=== PATIENT | female | born 1985 | race Two or more races ===

== ENCOUNTER 2016-11-01 15:35 | Observation (INO) | payer SELFPAY ==
[2016-11-01] MEDS ORDERED: PREN-96 PO (15:59)
== END 2016-11-01 18:23 | disposition home or self-care (01) | DRG 782 ==
LOC: LDRP 15:35
PROVIDERS: ADMIT Obstetrics & Gynecology; ATTEND Obstetrics & Gynecology
DX: O36.8130 Decreased fetal movements, third trimester, not applicable or unspecified (principal); Z3A.36 36 weeks gestation of pregnancy
CPT/HCPCS: 59025; 76818; 81002; G0378